=== PATIENT | male | born 1990 | race Caucasian/White ===

== ENCOUNTER 2016-12-12 18:01 | Emergency (ER) | payer OTHER, BC ==
[2016-12-12 18:13] VITALS: BP 122/71
[2016-12-12] MEDS ORDERED: Tetracaine 0.5% 2 ML Bottle EYELF ONE (18:35)
[2016-12-12] MEDS ORDERED: Fluorescein 1 MG Ophth Strip EYELF ONE (18:35)
--- NOTE | 2016-12-12 18:53 | EDM.PDOC ---
ED HPI EYE COMPLAINT - General Chief Complaint: Eye Problems Stated Complaint: FB to left eye Time Seen by Provider: 12/12/16 18:35 Source: Reports: Patient History Limitations: Reports: No limitations - History of Present Illness INITIAL COMMENTS - FREE TEXT/NARRATIVE: Sumanth is a 26 yo male who presents to the ER with concerns of something in his left eye. States today he was working around a lot of grain chaff and felt he ended up getting some in his eye. He admits he was wearing his glasses. Currently isn't sure if there is anything still in there but states it feels like there still is. Denies any vision changes. States he has tried flushing out his eye with no relief. Symptom Onset Date: 12/12/16 Location: left eye Severity: moderate Improves with: Reports: Other (keeping eye closed) Worsens with: Reports: Movement Associated Symptoms (Eye): Reports: pain, FB sensation, sensitivity to light. Denies: decreased/blurred, vision, double vision [employer]TE DELIVERY SERVICE DRIVER (EYE): eyewash/irrigation - Related Data Allergies/ADRs: Allergies dog dander Allergy (Verified 12/12/16 18:14) Other peanut Allergy (Verified 12/12/16 18:14) Hives Home Meds: Ambulatory Orders Medication Instructions Recorded Confirmed . [No Known Home Meds] 12/12/16 12/12/16 Past Medical History - Past Health History Medical/Surgical History: Denies Medical/Surgical History Social & Family History - Tobacco Use Smoking Status *Q: Never Smoker - Recreational Drug Use Recreational Drug Use: No ED ROS GENERAL - Review of Systems Review Of Systems: ROS reveals no pertinent complaints other than HPI. ED EXAM GENERAL W FULL EYE - Physical Exam Exam: See Below General Appearance: alert, no apparent distress Eye Exam: left eye: conjunctival injection, corneal abrasion (3 oclock position) , foreign body (small piece of chaff), bilateral eye: EOMI, PERRL Eyelids: bilateral: normal appearance ED EYE w/ Add Procedure - Eye Procedure Alcaine Drops Administered: Yes Eye FB Removal: removal w/ cotton swab Cyclogel 2 Drops Administered: left eye Antibiotic Oinment/Drps Admin: left eye Course - Vital Signs Last Recorded V/S: Last Vital Signs Temp 98.7 F 12/12/16 18:03 Pulse 57 L 12/12/16 18:03 Resp 18 12/12/16 18:03 BP 122/71 12/12/16 18:03 Pulse Ox 100 12/12/16 18:03 - Orders/Labs/Meds Orders: Active Orders 24 hr Category Date Time Status Gentamicin [Gentak 0.3% Ophth Oint] Med 12/12/16 18:40 Active See Dose Instructions EYELF TID Medication Orders Gentamicin Sulfate (Gentak 0.3% Ophth Oint) 0 gm EYELF TID DON Last Admin: 12/12/16 18:47 Dose: 3.5 gm Meds: Medications Generic Name Dose Route Start Last Admin Trade Name Freq PRN Reason Stop Dose Admin Gentamicin Sulfate 0 gm 12/12/16 18:40 12/12/16 18:47 Gentak 0.3% Ophth Oint EYELF 3.5 gm TID DON Administration Discontinued Medications Generic Name Dose Route Start Last Admin Trade Name Freq PRN Reason Stop Dose Admin Fluorescein Sodium 1 mg 12/12/16 18:35 12/12/16 18:47 Ful-Lani EYELF 12/12/16 18:36 1 mg ONETIME ONE Administration Tetracaine 1 ml 12/12/16 18:35 12/12/16 18:47 Pontocaine 0.5% Ophth Drops EYELF 12/12/16 18:36 1 ml ASDIRECTED ONE Administration Departure - Departure Time of Disposition: 18:54 Disposition: Home, Self-Care 01 Clinical Impression: Corneal abrasion Qualifiers: Encounter type: initial encounter Laterality: left Qualified Code(s): S05.02XA - Injury of conjunctiva and corneal abrasion without foreign body, left eye, initial encounter Foreign body of left eye Qualifiers: Encounter type: initial encounter Qualified Code(s): T15.92XA - Foreign body on external eye, part unspecified, left eye, initial encounter Instructions: Eye Foreign Body, [id number] Referrals: PCP,Unobtain [Primary Care Provider] - Forms: ED Department Discharge Additional Instructions: 1) Gentamicin Ophthalmic - 2 drops four times a day for 7 days. 2) Wear sunglasses in light 3) Recommend no contact use, only wear glasses. 4) Ibuprofen 400mg every 4 hours as needed for discomfort. 5) If any vision changes or concerns, advise returning for reevaluation. - Problem List & Annotations (1) Corneal abrasion SNOMED Code(s): 98112976 Code(s): S05.00XA - INJ CONJUNCTIVA AND CORNEAL ABRASION W/O FB, UNSP EYE, INIT Status: Acute Current Visit: Yes Qualifiers: Encounter type: initial encounter Laterality: left Qualified Code(s): S05.02XA - Injury of conjunctiva and corneal abrasion without foreign body, left eye, initial encounter (2) Foreign body of left eye SNOMED Code(s): 46038919 Code(s): T15.92XA - FOREIGN BODY ON EXTERNAL EYE, PART UNSP, LEFT EYE, INIT Status: Acute Current Visit: Yes Qualifiers: Encounter type: initial encounter Qualified Code(s): T15.92XA - Foreign body on external eye, part unspecified, left eye, initial encounter - Problem List Review Problem List Initiated/Reviewed/Updated: Yes - My Orders Last 24 Hours: My Active Orders 12/12/16 18:40 Gentamicin [Gentak 0.3% Ophth Oint] See Dose Instructions EYELF TID - Assessment/Plan Last 24 Hours: My Active Orders 12/12/16 18:40 Gentamicin [Gentak 0.3% Ophth Oint] See Dose Instructions EYELF TID Plan: See additional instructions.
== END 2016-12-12 18:53 | disposition home or self-care (01) ==
LOC: CC.ED 18:01
DX: S05.02XA Injury of conjunctiva and corneal abrasion without foreign body, left eye, initial encounter (principal); T15.92XA Foreign body on external eye, part unspecified, left eye, initial encounter
CPT/HCPCS: 99282